=== PATIENT | female | born 1945 | race Caucasian/White ===

== ENCOUNTER 2017-04-26 09:33 | Outpatient (CLI) | payer MEDICARE ==
[~2017-04-26 09:33] MED LIST: ALBU8HFA PO; ATOR20TA PO; BUSP10TA11 PO; DIVA500T2 AD; DULO20CA50 PO; FAMO-128 PO; METO50TA7 PO; NAPR220T67 PO; NITR0.4T51 SL; OXYB5TAB11 PO
[2017-04-26 11:18] LABS: BASOPHILS % (AUTO) 0.6 % (0-1); EOSINOPHILS # (AUTO) 0.2 X10'3 (0-0.9); EOSINOPHILS % (AUTO) 2.6 % (0-6); HEMATOCRIT 39.7 % (35.0-45.0); HEMOGLOBIN 13.4 g/dl (12.0-16.0); LYMPHOCYTES # (AUTO) 2.3 X10'3 (1.1-4.8); LYMPHOCYTES % (AUTO) 34.7 % (21-51); MEAN CORPUSCULAR HEMOGLOBIN 26.8 PG (27.0-31.0); MEAN CORPUSCULAR HGB CONC 33.7 % (33.0-36.5); MEAN CORPUSCULAR VOLUME 79.4 FL (78-98); MEAN PLATELET VOLUME 9.4 FL (7.4-10.4); MONOCYTES # (AUTO) 0.6 X10'3 (0-0.9); MONOCYTES % (AUTO) 9.6 % (2-12); NEUTROPHILS # (AUTO) 3.4 X10'3 (1.8-7.7); NEUTROPHILS % (AUTO) 52.5 % (42-75); PLATELET COUNT 242 X10'3 (140-440); RED CELL DISTRIBUTION WIDTH 14.7 % (11.5-14.5); WHITE BLOOD COUNT 6.5 X10'3 (4.5-11.0)
[2017-04-26 11:20] LABS: CLARITY,URINE SLIGHTLY CLOUDY (Clear); COLOR,URINE YELLOW (Yellow); GLUCOSE, URINE NEGATIVE (Neg); KETONES,URINE NEGATIVE (Neg); LEUKOCYTE ESTERASE ,URINE NEGATIVE (Neg); NITRITES, URINE NEGATIVE (Neg); OCCULT BLOOD,URINE NEGATIVE (Neg); PH,URINE 7.5 (4.8-8.0); PROTEIN,URINE NEGATIVE (Neg); UROBILINOGEN,URINE 0.2 E.U/dL (0.2-1.0)
[2017-04-26 11:22] LABS: UA COLLECTION TYPE CLN CATCH MIDSTREAM
[2017-04-26 11:27] LABS: PROTHROMBIN TIME 10.5 SECONDS (9.0-12.0)
[2017-04-26 11:31] LABS: ALANINE AMINOTRANSFERASE 33 U/L (12-78); ALBUMIN 3.6 G/DL (3.4-5.0); ALBUMIN/GLOBULIN RATIO 1.1 (1.1-1.5); ALKALINE PHOSPHATASE 177 IU/L (46-116); ANION GAP 4 (8-16); ASPARTATE AMINO TRANSFERASE 20 U/L (10-37); BILIRUBIN,TOTAL 0.6 MG/DL (0.1-1.0); BLOOD UREA NITROGEN 19 MG/DL (7-18); CALCIUM 9.3 MG/DL (8.5-10.1); CHLORIDE 105 MMOL/L (99-107); CREATININE 0.73 MG/DL (0.40-0.90); GLUCOSE 129 MG/DL (70-104); POTASSIUM 4.1 MMOL/L (3.5-5.1); SODIUM 140 MMOL/L (135-145); TOTAL CARBON DIOXIDE 30.6 MMOL/L (24-32); TOTAL PROTEIN 6.8 G/DL (6.4-8.2); eGFR 78 ML/MIN
[2017-04-26 11:34] LABS: BACTERIA,URINE NONE SEEN /HPF (Neg); MUCUS STRANDS NONE SEEN /LPF (Neg); RBC,URINE 0-2 /HPF (0-2); RENAL CELLS, URINE FEW /HPF; SQUAMOUS EPITHELIAL CELL,UR FEW /LPF (FEW); WBC,URINE 0-4 /HPF (0-4)
[2017-04-26 11:35] LABS: HEMOGLOBIN A1C 6.3 % (4.5-6.2)
== END 2017-04-26 23:59 | disposition home or self-care (01) ==
LOC: LAB 09:33
PROVIDERS: ATTEND Specialist
DX: Z01.818 Encounter for other preprocedural examination (principal); Z51.81 Encounter for therapeutic drug level monitoring; E11.8 Type 2 diabetes mellitus with unspecified complications; N39.0 Urinary tract infection, site not specified; I10 Essential (primary) hypertension; J45.909 Unspecified asthma, uncomplicated; Z72.89 Other problems related to lifestyle; Z87.891 Personal history of nicotine dependence
CPT/HCPCS: 36415; 80053; 81001; 83036; 85025; 85610; 87070

== ENCOUNTER 2017-05-10 05:30 | Inpatient (IN) | payer MEDICARE ==
[2017-05-10] VITALS (21 sets, daily range): BP systolic 93–132; BP diastolic 43–67
[~2017-05-10] VITALS: Ht 152.4 cm; Wt 84.9 kg
[~2017-05-10 05:30] MED LIST changes: +ALBU18HF2 INH; -ALBU8HFA PO; +BENZ-16 PO; +CA C1TAB95 PO; +CELE-193 PO; +DIPH25CA83 PO; -DIVA500T2 AD; +DOCUMENT DATE & TIME OF BETA-BLOCKER PO ONE; +FISH12002 PO; +FLUT100D2 INH; +HYDR-3965 PO; +ISOS120T9 PO; +LOPE-144 PO; +LORA10TA7 PO; +MULT-38 PO; +MV-M1TAB32 PO; +OXYGEN MC; +REXULTI PO; +SUMA25TA35 PO; +TRAZ-143 PO; +VITAMIN C PO; +VITAMIN D PO; +[UNRECOGNIZED DRUG - OTHER] PO; +acetaminophen 325mg tablet PO ONE; +albuterol 2.5 MG/3 ML nebule NEB ONE; +ceFAZolin 2gm in dextrose, iso 50 ML IV ONE; +famotidine 20mg tablet PO ONE; +gabapentin 300mg capsule PO ONE; +ringers solution, lacted 1,000 ML IV SCH; +tranexamic acid inj. 1,000 MG in normal saline 100ml IV soln 90 ML IV ONE; +vancomycin inj 1,500 MG in normal saline 300ml IV soln IV ONE
[2017-05-10] MEDS ORDERED: LIDOcaine 1% (10mg/ml) 2ml vial ONE (05:42)
[2017-05-10] MEDS ORDERED: ROPIVAcaine 0.5% (5mg/ml) 30ml vial ONE (06:45)
[2017-05-10] MEDS ORDERED: bacitracin inj 150,000 UNIT in sodium chloride irrig. sol 3,000 ML IR ONE (07:00)
[2017-05-10] MEDS ORDERED: MIDAZolam 1mg/ml 10ml vial ONE (07:22)
[2017-05-10] MEDS ORDERED: fentaNYL/PF 50MCG/1 ML 2ML syringe ONE (07:22)
[2017-05-10] MEDS ORDERED: cloNIDine hcl/PF 100mcg/ml inj ONE (07:32)
[2017-05-10] MEDS ORDERED: BUPIVAcaine/PF 7.5mg/ml (0.75%) 10ml vial ONE (07:34)
[2017-05-10] MEDS ORDERED: ePHEDrine 50MG/ML INJ. ONE (07:57)
[2017-05-10] MEDS ORDERED: ringers solution, lacted 1,000 ML IV SCH (08:26)
[2017-05-10] MEDS ORDERED: proCHLORperazine 10 MG/2 ml inj IV PRN (08:30)
[2017-05-10] MEDS ORDERED: meperidine/PF 25mg/ml syringe IV PRN ×3 (08:30)
[2017-05-10] MEDS ORDERED: ondansetron/PF 4mg/2ml inj IV PRN ×2 (08:30→09:30)
[2017-05-10] MEDS ORDERED: albumin (Human) 5% 250ml 250 ML IV ONE (08:43)
[2017-05-10] MEDS ORDERED: ceFAZolin 1000mg inj ONE (08:52)
[2017-05-10] MEDS ORDERED: nitroGLYCERIN 0.4mg SUBLingual tab SL PRN (09:25)
[2017-05-10] MEDS ORDERED: glucagon, human recombinant 1mg kit SUBCUT PRN (09:30)
[2017-05-10] MEDS ORDERED: insulin Lispro (HumaLOG) vial - multi-dose SQ SCH (09:30)
[2017-05-10] MEDS ORDERED: diphenhydrAMINE 25mg capsule PO PRN ×2 (09:30)
[2017-05-10] MEDS ORDERED: magnesium hydroxide 30ml (MOM) UD suspension PO PRN (09:30)
[2017-05-10] MEDS ORDERED: dextrose ORAL solution 15 GM/59 ML bottle PO PRN ×2 (09:30)
[2017-05-10] MEDS ORDERED: bisacodyl 10mg suppository rectal RC PRN (09:30)
[2017-05-10] MEDS ORDERED: dextrose 50%-water 50ml dispensing syringe IV PRN ×2 (09:30)
[2017-05-10] MEDS ORDERED: acetaminophen 325mg tablet PO PRN (09:30)
[2017-05-10] MEDS ORDERED: MESSAGE TO PHARMACY PO ONE (09:30)
[2017-05-10] MEDS ORDERED: HYDROmorphone 1 mg/ml syringe IV PRN (09:30)
[2017-05-10] MEDS ORDERED: HYDROcodone/acetaminophen 10/325mg tab PO PRN (09:40)
[2017-05-10] MEDS: potassium cl 20mEq in 1/2 NS 1,000 ML IV SCH ×2 (12:31→17:16)
[2017-05-10] MEDS: cefazolin 1gm/NS 100mL 100 ML IV SCH ×2 (13:29→22:03)
[2017-05-10] MEDS: gabapentin 300mg capsule PO SCH ×2 (13:30→20:26)
[2017-05-10] MEDS: acetaminophen 325mg tablet PO SCH ×2 (13:30→20:26)
[2017-05-10] MEDS: HYDROcodone/acetaminophen 10/325mg tab PO PRN (16:06)
[2017-05-10] MEDS: lactobacillus rhamnosus 10,000 MMU CELLS/CAPSULE PO SCH (17:16)
[2017-05-10] MEDS ORDERED: vancomycin/NS 1 GM ADD-VANTAGE 250 ML IV SCH (18:00)
[2017-05-10] MEDS: ascorbic acid 500mg tablet PO SCH (20:26)
[2017-05-10] MEDS: busPIRone 5mg tablet PO SCH (20:27)
[2017-05-10] MEDS: celeCOXIB 100mg capsule PO SCH (20:27)
[2017-05-10] MEDS: sennosides 8.6mg tablet PO SCH (20:28)
[2017-05-10] MEDS: insulin glargine (Lantus) pen - multi-dose SQ SCH (21:00)
[2017-05-10] MEDS ORDERED: non-formulary drug ([Oxygen] 2 L) MC SCH (21:00)
[2017-05-11] MEDS: potassium cl 20mEq in 1/2 NS 1,000 ML IV SCH ×4 (00:39→22:24)
[2017-05-11] MEDS: HYDROcodone/acetaminophen 10/325mg tab PO PRN ×3 (00:39→16:35)
[2017-05-11 02:00] VITALS: BP 111/67
[2017-05-11] MEDS: acetaminophen 325mg tablet PO SCH ×4 (02:00→22:23)
[2017-05-11 05:00] VITALS: BP 111/67
[2017-05-11 06:48] LABS: BASOPHILS % (AUTO) 0.2 % (0-1); EOSINOPHILS # (AUTO) 0.1 X10'3 (0-0.9); EOSINOPHILS % (AUTO) 1.2 % (0-6); HEMATOCRIT 31.8 % (35.0-45.0); HEMOGLOBIN 10.9 g/dl (12.0-16.0); LYMPHOCYTES # (AUTO) 1.1 X10'3 (1.1-4.8); LYMPHOCYTES % (AUTO) 11.2 % (21-51); MEAN CORPUSCULAR HEMOGLOBIN 27.2 PG (27.0-31.0); MEAN CORPUSCULAR HGB CONC 34.4 % (33.0-36.5); MEAN CORPUSCULAR VOLUME 79.1 FL (78-98); MEAN PLATELET VOLUME 9.5 FL (7.4-10.4); MONOCYTES # (AUTO) 1.1 X10'3 (0-0.9); MONOCYTES % (AUTO) 10.9 % (2-12); NEUTROPHILS # (AUTO) 7.5 X10'3 (1.8-7.7); NEUTROPHILS % (AUTO) 76.5 % (42-75); PLATELET COUNT 183 X10'3 (140-440); RED BLOOD COUNT 4.02 X10'6 (4.20-5.60); RED CELL DISTRIBUTION WIDTH 14.4 % (11.5-14.5); WHITE BLOOD COUNT 9.8 X10'3 (4.5-11.0)
[2017-05-11 06:51] LABS: INR 1.8 INR; PROTHROMBIN TIME 18.1 SECONDS (9.0-12.0)
[2017-05-11 07:41] LABS: ANION GAP 5 (8-16); CHLORIDE 106 MMOL/L (99-107); POTASSIUM 4.1 MMOL/L (3.5-5.1); SODIUM 139 MMOL/L (135-145); TOTAL CARBON DIOXIDE 28.1 MMOL/L (24-32)
[2017-05-11] MEDS ORDERED: fluticasone furoate 200 MCG/puff inhaler IH SCH (08:00)
[2017-05-11] MEDS: albuterol 2.5 MG/3 ML nebule NEB SCH (08:12)
[2017-05-11] MEDS: busPIRone 5mg tablet PO SCH ×2 (08:31→22:23)
[2017-05-11] MEDS: gabapentin 300mg capsule PO SCH ×3 (08:31→22:22)
[2017-05-11] MEDS: metoprolol succinate 25mg (24-HOUR) SR. Tablet PO SCH (08:31)
[2017-05-11] MEDS: atorvastatin 20mg tablet PO SCH (08:32)
[2017-05-11] MEDS: ascorbic acid 500mg tablet PO SCH ×2 (08:33→22:22)
[2017-05-11] MEDS: multivitamins, therapeutics tablet PO SCH (08:33)
[2017-05-11] MEDS: isosorbide mononitrate 30mg tab.SR.24H PO SCH (08:33)
[2017-05-11] MEDS: oxybutynin 5mg tablet PO SCH (08:33)
[2017-05-11] MEDS: lactobacillus rhamnosus 10,000 MMU CELLS/CAPSULE PO SCH ×2 (08:34→16:35)
[2017-05-11] MEDS: famotidine 20mg tablet PO SCH (09:01)
[2017-05-11] MEDS: duloxetine 20mg capsule.DR PO SCH (09:04)
[2017-05-11] MEDS: celeCOXIB 100mg capsule PO SCH ×2 (09:07→22:23)
[2017-05-11] MEDS ORDERED: warfarin 1mg tablet PO ONE (10:00)
[2017-05-11 11:33] VITALS: BP 118/43
[2017-05-11] MEDS: fluticasone furoate 100MCG/puff inhaler IH SCH ×2 (11:51→13:48)
[2017-05-11 19:30] VITALS: BP 81/39
[2017-05-11] MEDS: Protein Shake (high protein) 240ml (8oz) cup PO SCH (19:30)
[2017-05-11] MEDS: insulin glargine (Lantus) pen - multi-dose SQ SCH (21:00)
[2017-05-11 22:00] VITALS: BP 97/51
[2017-05-11] MEDS: sennosides 8.6mg tablet PO SCH (22:23)
[2017-05-12] MEDS: acetaminophen 325mg tablet PO SCH ×2 (02:00→08:29)
[2017-05-12] MEDS: HYDROcodone/acetaminophen 10/325mg tab PO PRN (05:21)
[2017-05-12 06:30] VITALS: BP 122/60
[2017-05-12 07:15] LABS: BASOPHILS % (AUTO) 0.2 % (0-1); EOSINOPHILS # (AUTO) 0.2 X10'3 (0-0.9); EOSINOPHILS % (AUTO) 2.5 % (0-6); HEMATOCRIT 27.2 % (35.0-45.0); HEMOGLOBIN 9.5 g/dl (12.0-16.0); LYMPHOCYTES # (AUTO) 2.5 X10'3 (1.1-4.8); LYMPHOCYTES % (AUTO) 29.1 % (21-51); MEAN CORPUSCULAR HEMOGLOBIN 27.4 PG (27.0-31.0); MEAN CORPUSCULAR VOLUME 78.1 FL (78-98); MEAN PLATELET VOLUME 9.6 FL (7.4-10.4); MONOCYTES # (AUTO) 1.4 X10'3 (0-0.9); MONOCYTES % (AUTO) 16.1 % (2-12); NEUTROPHILS # (AUTO) 4.5 X10'3 (1.8-7.7); NEUTROPHILS % (AUTO) 52.1 % (42-75); PLATELET COUNT 161 X10'3 (140-440); RED BLOOD COUNT 3.48 X10'6 (4.20-5.60); RED CELL DISTRIBUTION WIDTH 15.1 % (11.5-14.5); WHITE BLOOD COUNT 8.7 X10'3 (4.5-11.0)
[2017-05-12 07:20] LABS: INR 1.6 INR; PROTHROMBIN TIME 16.1 SECONDS (9.0-12.0)
[2017-05-12] MEDS: albuterol 2.5 MG/3 ML nebule NEB SCH (07:50)
[2017-05-12] MEDS: fluticasone furoate 100MCG/puff inhaler IH SCH (07:50)
[2017-05-12] MEDS: busPIRone 5mg tablet PO SCH (08:29)
[2017-05-12] MEDS: ascorbic acid 500mg tablet PO SCH (08:29)
[2017-05-12] MEDS: atorvastatin 20mg tablet PO SCH (08:29)
[2017-05-12] MEDS: multivitamins, therapeutics tablet PO SCH (08:29)
[2017-05-12] MEDS: oxybutynin 5mg tablet PO SCH (08:29)
[2017-05-12] MEDS: isosorbide mononitrate 30mg tab.SR.24H PO SCH (08:29)
[2017-05-12] MEDS: duloxetine 20mg capsule.DR PO SCH (08:29)
[2017-05-12] MEDS: celeCOXIB 100mg capsule PO SCH (08:30)
[2017-05-12] MEDS: famotidine 20mg tablet PO SCH (08:30)
[2017-05-12] MEDS: Protein Shake (high protein) 240ml (8oz) cup PO SCH ×2 (08:30→13:30)
[2017-05-12] MEDS: gabapentin 300mg capsule PO SCH (08:30)
[2017-05-12] MEDS: lactobacillus rhamnosus 10,000 MMU CELLS/CAPSULE PO SCH (08:30)
[2017-05-12] MEDS: metoprolol succinate 25mg (24-HOUR) SR. Tablet PO SCH (08:30)
[2017-05-12] MEDS ORDERED: acetaminophen 325mg tablet PO PRN (09:30)
[2017-05-12 10:00] VITALS: BP 106/59
[2017-05-12] MEDS ORDERED: warfarin 4mg tablet PO ONE (10:00)
[2017-05-12] MEDS ORDERED: ASPI-1264 PO (10:51)
== END 2017-05-12 15:17 | disposition home health service (06) | DRG 470 ==
LOC: PAS IN 05:30 → EDSTATUS 07:30 → ORTHO 4S 11:53
PROVIDERS: ADMIT Specialist; ATTEND Specialist
PROC: 3E0T3BZ Introduction of Anesthetic Agent into Peripheral Nerves and Plexi, Percutaneous Approach (ICD-10-PCS; 2017-05-10)
PROC: 0SRB02Z Replacement of Left Hip Joint with Metal on Polyethylene Synthetic Substitute, Open Approach (ICD-10-PCS; principal; 2017-05-10 07:22)
DX: M16.12 Unilateral primary osteoarthritis, left hip (principal); J44.9 Chronic obstructive pulmonary disease, unspecified; D62 Acute posthemorrhagic anemia; I10 Essential (primary) hypertension; K21.9 Gastro-esophageal reflux disease without esophagitis; G47.30 Sleep apnea, unspecified; F32.9 Major depressive disorder, single episode, unspecified; J45.909 Unspecified asthma, uncomplicated; R73.9 Hyperglycemia, unspecified; G43.909 Migraine, unspecified, not intractable, without status migrainosus; Z96.659 Presence of unspecified artificial knee joint; Z90.710 Acquired absence of both cervix and uterus; Z98.49 Cataract extraction status, unspecified eye; Z79.899 Other long term (current) drug therapy; Z79.01 Long term (current) use of anticoagulants; Z88.5 Allergy status to narcotic agent; Z88.0 Allergy status to penicillin; Z88.8 Allergy status to other drugs, medicaments and biological substances; Z87.891 Personal history of nicotine dependence
CPT/HCPCS: 36415; 73502; 80051; 82948; 83036; 85025; 85610; 86885; 86900; 86901; 94640; 94760; 97110; 97116; 97162; 97530; A4565; A6253; A6449; A6455; A7000; C1758; C1776; J0690; J0735; J1170; J1815; J2250; J2405; J2795; J3010; J3370; J3490; J7030; J7120; P9045

== ENCOUNTER 2017-08-09 09:38 | Emergency (ER) | payer MEDICARE ==
[~2017-08-09] VITALS: Ht 152.4 cm; Wt 84.0 kg
[~2017-08-09 09:38] MED LIST changes: +ASPI-1264 PO; -BENZ-16 PO; +CLON0.5T4 PO; -DOCUMENT DATE & TIME OF BETA-BLOCKER PO ONE; -acetaminophen 325mg tablet PO ONE; -albuterol 2.5 MG/3 ML nebule NEB ONE; -ceFAZolin 2gm in dextrose, iso 50 ML IV ONE; -famotidine 20mg tablet PO ONE; -gabapentin 300mg capsule PO ONE; -ringers solution, lacted 1,000 ML IV SCH; -tranexamic acid inj. 1,000 MG in normal saline 100ml IV soln 90 ML IV ONE; -vancomycin inj 1,500 MG in normal saline 300ml IV soln IV ONE
[2017-08-09 11:30] VITALS: BP 150/56
== END 2017-08-09 11:32 | disposition home or self-care (01) ==
LOC: ER 09:39
DX: S09.90XA Unspecified injury of head, initial encounter (principal); I10 Essential (primary) hypertension; J44.9 Chronic obstructive pulmonary disease, unspecified; Z88.0 Allergy status to penicillin; Z88.5 Allergy status to narcotic agent; Z88.6 Allergy status to analgesic agent; Z88.2 Allergy status to sulfonamides; Z98.890 Other specified postprocedural states; Z79.899 Other long term (current) drug therapy; W01.0XXA Fall on same level from slipping, tripping and stumbling without subsequent striking against object, initial encounter; Y93.89 Activity, other specified; Y92.89 Other specified places as the place of occurrence of the external cause; Y99.8 Other external cause status
CPT/HCPCS: 70450; 99284

== ENCOUNTER 2017-08-31 13:17 | Emergency (ER) | payer MEDICARE ==
[~2017-08-31] VITALS: Ht 152.4 cm; Wt 75.0 kg
[2017-08-31 13:37] LABS: BASOPHILS % (AUTO) 0.4 % (0-1); EOSINOPHILS # (AUTO) 0.2 X10'3 (0-0.9); EOSINOPHILS % (AUTO) 2.7 % (0-6); HEMATOCRIT 38.8 % (35.0-45.0); HEMOGLOBIN 13.1 g/dl (12.0-16.0); LYMPHOCYTES # (AUTO) 2.2 X10'3 (1.1-4.8); LYMPHOCYTES % (AUTO) 28.7 % (21-51); MEAN CORPUSCULAR HEMOGLOBIN 26.9 PG (27.0-31.0); MEAN CORPUSCULAR HGB CONC 33.8 % (33.0-36.5); MEAN CORPUSCULAR VOLUME 79.4 FL (78-98); MEAN PLATELET VOLUME 9.4 FL (7.4-10.4); MONOCYTES % (AUTO) 12.9 % (2-12); NEUTROPHILS # (AUTO) 4.2 X10'3 (1.8-7.7); NEUTROPHILS % (AUTO) 55.3 % (42-75); PLATELET COUNT 233 X10'3 (140-440); RED BLOOD COUNT 4.88 X10'6 (4.20-5.60); RED CELL DISTRIBUTION WIDTH 15.4 % (11.5-14.5); WHITE BLOOD COUNT 7.6 X10'3 (4.5-11.0)
[2017-08-31 13:46] LABS: PROTHROMBIN TIME 10.3 SECONDS (9.0-12.0)
[2017-08-31 13:51] LABS: ALANINE AMINOTRANSFERASE 93 U/L (12-78); ALBUMIN 3.5 G/DL (3.4-5.0); ALBUMIN/GLOBULIN RATIO 1.1 (1.1-1.5); ALKALINE PHOSPHATASE 478 IU/L (46-116); ANION GAP 8 (8-16); ASPARTATE AMINO TRANSFERASE 82 U/L (10-37); BILIRUBIN,TOTAL 0.6 MG/DL (0.1-1.0); BLOOD UREA NITROGEN 19 MG/DL (7-18); BUN/CREATININE RATIO 27.9 (6.6-38.0); CALCIUM 9.6 MG/DL (8.5-10.1); CHLORIDE 105 MMOL/L (99-107); CREATININE 0.68 MG/DL (0.40-0.90); GLUCOSE 123 MG/DL (70-104); POTASSIUM 4.1 MMOL/L (3.5-5.1); SODIUM 139 MMOL/L (135-145); TOTAL CARBON DIOXIDE 26.2 MMOL/L (24-32); TOTAL PROTEIN 6.7 G/DL (6.4-8.2); eGFR 85 ML/MIN
[2017-08-31 15:12] LABS: CLARITY,URINE CLEAR (Clear); COLOR,URINE YELLOW (Yellow); GLUCOSE, URINE NEGATIVE (Neg); KETONES,URINE NEGATIVE (Neg); LEUKOCYTE ESTERASE ,URINE TRACE (Neg); NITRITES, URINE NEGATIVE (Neg); OCCULT BLOOD,URINE NEGATIVE (Neg); PROTEIN,URINE NEGATIVE (Neg)
[2017-08-31 15:19] LABS: UA COLLECTION TYPE CLN CATCH MIDSTREAM
[2017-08-31 15:20] LABS: WBC,URINE 0-4 /HPF (0-4)
[2017-08-31 15:21] LABS: AMORPHOUS PHOSPHATES 1+; BACTERIA,URINE FEW /HPF (Neg); MUCUS STRANDS FEW /LPF (Neg); RBC,URINE NONE SEEN /HPF (0-2); SQUAMOUS EPITHELIAL CELL,UR FEW /LPF (FEW)
[2017-08-31 15:37] VITALS: BP 94/35
== END 2017-08-31 15:39 | disposition home or self-care (01) ==
LOC: ER 13:17
DX: R53.1 Weakness (principal); I69.954 Hemiplegia and hemiparesis following unspecified cerebrovascular disease affecting left non-dominant side; J44.9 Chronic obstructive pulmonary disease, unspecified; I10 Essential (primary) hypertension; Z88.0 Allergy status to penicillin; Z88.2 Allergy status to sulfonamides; Z88.5 Allergy status to narcotic agent; Z88.6 Allergy status to analgesic agent; Z79.82 Long term (current) use of aspirin; Z98.890 Other specified postprocedural states
CPT/HCPCS: 36415; 70450; 71045; 80053; 81001; 84484; 85025; 85610; 87088; 93005; 99285

== ENCOUNTER 2017-12-14 14:36 | Emergency (ER) | payer MEDICARE ==
[~2017-12-14] VITALS: Ht 162.6 cm; Wt 80.7 kg
[~2017-12-14 14:36] MED LIST changes: -ASPI-1264 PO; +CLON0.5T12 PO; -CLON0.5T4 PO; -TRAZ-143 PO; +TRAZ-218 PO
[2017-12-14] MEDS ORDERED: orphenadrine citrate 60mg/2ml inj. IM ONE (16:00)
[2017-12-14] MEDS ORDERED: CYCL-1 PO (16:02)
== END 2017-12-14 16:21 | disposition home or self-care (01) ==
LOC: ER 14:37
DX: S39.012A Strain of muscle, fascia and tendon of lower back, initial encounter (principal); I10 Essential (primary) hypertension; J44.9 Chronic obstructive pulmonary disease, unspecified; Z86.73 Personal history of transient ischemic attack (TIA), and cerebral infarction without residual deficits; Z88.0 Allergy status to penicillin; Z88.2 Allergy status to sulfonamides; Z88.8 Allergy status to other drugs, medicaments and biological substances; Z88.6 Allergy status to analgesic agent; Z91.040 Latex allergy status; W18.30XA Fall on same level, unspecified, initial encounter; Y93.9 Activity, unspecified; Y92.89 Other specified places as the place of occurrence of the external cause; Y99.8 Other external cause status
CPT/HCPCS: 96372; 99284; J2360

== ENCOUNTER 2018-07-06 15:17 | Emergency (ER) | payer MEDICARE ==
[~2018-07-06] VITALS: Ht 152.4 cm; Wt 87.3 kg
[~2018-07-06 15:17] MED LIST changes: +CYCL-1 PO; +ISOS120T13 PO; -ISOS120T9 PO
[2018-07-06] MEDS ORDERED: normal saline 1000ML IV soln IVB ONE (16:25)
[2018-07-06] MEDS ORDERED: proCHLORperazine 10 MG/2 ml inj IV ONE (16:25)
[2018-07-06] MEDS ORDERED: diphenhydrAMINE 50 mg/ml inj IV ONE (16:25)
[2018-07-06 17:01] VITALS: BP 109/54
[2018-07-06] MEDS ORDERED: ketorolac tromethamine 15mg/ml inj. IV ONE (17:10)
--- NOTE | 2018-07-06 17:15 | NUR ---
Tricia LATHAM aware of allergy to toradol. Patient states that she has had it since her initial reaction to medication without any difficulty. Ok to given per PA.
== END 2018-07-06 18:53 | disposition home or self-care (01) ==
LOC: ER 15:17
DX: G43.909 Migraine, unspecified, not intractable, without status migrainosus (principal); I10 Essential (primary) hypertension; J44.9 Chronic obstructive pulmonary disease, unspecified; E11.9 Type 2 diabetes mellitus without complications; Z86.73 Personal history of transient ischemic attack (TIA), and cerebral infarction without residual deficits; Z98.890 Other specified postprocedural states; Z79.899 Other long term (current) drug therapy; Z88.0 Allergy status to penicillin; Z88.2 Allergy status to sulfonamides; Z88.5 Allergy status to narcotic agent; Z91.040 Latex allergy status; Z88.6 Allergy status to analgesic agent; Z88.8 Allergy status to other drugs, medicaments and biological substances
CPT/HCPCS: 96374; 96375; 99284; J0780; J1200; J1885; J7030

== ENCOUNTER 2019-09-02 14:50 | Emergency (ER) | payer MEDICARE ==
[~2019-09-02] VITALS: Ht 152.4 cm; Wt 86.2 kg
[~2019-09-02 14:50] MED LIST changes: -CLON0.5T12 PO; +CLON0.5T4 PO; -OXYB5TAB11 PO; +OXYB5TAB16 PO; -TRAZ-218 PO; +TRAZ-251 PO
[2019-09-02 15:50] LABS: BASOPHILS # (AUTO) 0.1 X10'3 (0-0.2); BASOPHILS % (AUTO) 0.7 % (0-1); EOSINOPHILS # (AUTO) 0.2 X10'3 (0-0.9); EOSINOPHILS % (AUTO) 2.3 % (0-6); HEMATOCRIT 39.8 % (35.0-45.0); HEMOGLOBIN 13.3 g/dl (12.0-16.0); LYMPHOCYTES # (AUTO) 1.9 X10'3 (1.1-4.8); LYMPHOCYTES % (AUTO) 18.5 % (21-51); MEAN CORPUSCULAR HEMOGLOBIN 28.1 PG (27.0-31.0); MEAN CORPUSCULAR HGB CONC 33.5 g/dL (33.0-36.5); MEAN CORPUSCULAR VOLUME 83.9 FL (78-98); MEAN PLATELET VOLUME 9.1 FL (7.4-10.4); MONOCYTES # (AUTO) 1.2 X10'3 (0-0.9); MONOCYTES % (AUTO) 12.3 % (2-12); NEUTROPHILS # (AUTO) 6.7 X10'3 (1.8-7.7); NEUTROPHILS % (AUTO) 66.2 % (42-75); PLATELET COUNT 225 X10'3 (140-440); RED BLOOD COUNT 4.74 X10'6 (4.20-5.60); RED CELL DISTRIBUTION WIDTH 14.2 % (11.5-14.5); WHITE BLOOD COUNT 10.1 X10'3 (4.5-11.0)
[2019-09-02 16:06] LABS: ALANINE AMINOTRANSFERASE 24 U/L (12-78); ALBUMIN 3.3 G/DL (3.4-5.0); ALBUMIN/GLOBULIN RATIO 1.1 (1.1-1.5); ALKALINE PHOSPHATASE 131 IU/L (46-116); ANION GAP 5 (8-16); ASPARTATE AMINO TRANSFERASE 23 U/L (10-37); BILIRUBIN,TOTAL 0.6 MG/DL (0.1-1.0); BLOOD UREA NITROGEN 13 MG/DL (7-18); BUN/CREATININE RATIO 15.5 (6.6-38.0); CALCIUM 8.8 MG/DL (8.5-10.1); CHLORIDE 102 MMOL/L (99-107); CREATININE 0.84 MG/DL (0.40-0.90); GLUCOSE 180 MG/DL (70-104); POTASSIUM 3.6 MMOL/L (3.5-5.1); SODIUM 134 MMOL/L (135-145); TOTAL CARBON DIOXIDE 26.6 MMOL/L (24-32); TOTAL PROTEIN 6.4 G/DL (6.4-8.2); eGFR 66 ML/MIN
[2019-09-02 16:41] LABS: MAGNESIUM 1.6 MG/DL (1.5-2.4)
[2019-09-02 16:44] LABS: PARTIAL THROMBOPLASTIN TIME 25 SECONDS (22-32)
[2019-09-02] MEDS ORDERED: acetaminophen 325mg tablet PO ONE (16:55)
[2019-09-02] MEDS ORDERED: normal saline 1000ML IV soln IVB ONE (16:55)
[2019-09-02] MEDS ORDERED: ACET-890 PO (16:58)
--- NOTE | 2019-09-02 17:05 | NUR ---
provided ptwith snack, gae tylenol and started ns bolus
[2019-09-02] MEDS ORDERED: insulin regular, human U-100 3ml vial - multi-dose SQ SCH (17:15)
[2019-09-02] MEDS ORDERED: dextrose ORAL solution 15 GM/59 ML bottle PO PRN ×2 (17:15)
[2019-09-02] MEDS ORDERED: glucagon, human recombinant 1mg kit SUBCUT PRN (17:15)
[2019-09-02] MEDS ORDERED: MESSAGE TO PHARMACY PO ONE (17:15)
[2019-09-02] MEDS ORDERED: dextrose 50%-water 50ml dispensing syringe IV PRN ×2 (17:15)
--- NOTE | 2019-09-02 17:37 | NUR ---
called thao [phone] to come in 30 min to pick pt up
[2019-09-02 18:06] VITALS: BP 118/52
[2019-09-02] MEDS ORDERED: insulin glargine (Lantus) pen - multi-dose SQ SCH (21:00)
== END 2019-09-02 18:08 | disposition home or self-care (01) ==
LOC: ER 14:51
DX: E86.0 Dehydration (principal); R55 Syncope and collapse; R07.89 Other chest pain; I10 Essential (primary) hypertension; J44.9 Chronic obstructive pulmonary disease, unspecified; Z86.73 Personal history of transient ischemic attack (TIA), and cerebral infarction without residual deficits; Z98.890 Other specified postprocedural states; Z79.899 Other long term (current) drug therapy; Z88.0 Allergy status to penicillin; Z88.2 Allergy status to sulfonamides; Z88.5 Allergy status to narcotic agent; Z88.6 Allergy status to analgesic agent
CPT/HCPCS: 36415; 71045; 80053; 82948; 83735; 84484; 85025; 85610; 85730; 93005; 96360; 99285; J7030; J1815

== ENCOUNTER 2021-10-23 15:41 | Emergency (ER) | payer MEDICARE ==
[~2021-10-23] VITALS: Ht 152.4 cm; Wt 78.2 kg
[2021-10-23] MEDS ORDERED: BEBTELOVIMAB 175 MG/2 ML VIAL IV ONE (17:30)
[2021-10-23] MEDS ORDERED: normal saline 500ml IV soln 500 ML IV ONE (17:30)
[2021-10-23 17:46] LABS: BASOPHILS # (AUTO) 0.1 X10'3 (0-0.2); BASOPHILS % (AUTO) 0.7 % (0-1); EOSINOPHILS # (AUTO) 0.1 X10'3 (0-0.9); EOSINOPHILS % (AUTO) 1.7 % (0-6); HEMATOCRIT 40.1 % (35.0-45.0); HEMOGLOBIN 13.7 g/dl (12.0-16.0); LYMPHOCYTES # (AUTO) 1.7 X10'3 (1.1-4.8); LYMPHOCYTES % (AUTO) 19.9 % (21-51); MEAN CORPUSCULAR HEMOGLOBIN 27.4 PG (27.0-31.0); MEAN CORPUSCULAR HGB CONC 34.2 g/dL (33.0-36.5); MEAN PLATELET VOLUME 8.6 FL (7.4-10.4); MONOCYTES % (AUTO) 12.1 % (2-12); NEUTROPHILS # (AUTO) 5.5 X10'3 (1.8-7.7); NEUTROPHILS % (AUTO) 65.6 % (42-75); PLATELET COUNT 363 X10'3 (140-440); RED BLOOD COUNT 5.01 X10'6 (4.20-5.60); RED CELL DISTRIBUTION WIDTH 14.9 % (11.5-14.5); WHITE BLOOD COUNT 8.4 X10'3 (4.5-11.0)
[2021-10-23 18:05] LABS: ALANINE AMINOTRANSFERASE 29 U/L (12-78); ALBUMIN/GLOBULIN RATIO 0.8 (1.1-1.5); ALKALINE PHOSPHATASE 114 IU/L (46-116); ANION GAP 8 (8-16); ASPARTATE AMINO TRANSFERASE 23 U/L (10-37); BILIRUBIN,TOTAL 0.5 MG/DL (0.1-1.0); BLOOD UREA NITROGEN 14 MG/DL (7-18); BUN/CREATININE RATIO 21.5 (6.6-38.0); CALCIUM 9.3 MG/DL (8.5-10.1); CHLORIDE 107 MMOL/L (99-107); CREATININE 0.65 MG/DL (0.40-0.90); GLUCOSE 134 MG/DL (70-104); POTASSIUM 3.2 MMOL/L (3.5-5.1); SODIUM 137 MMOL/L (135-145); TOTAL CARBON DIOXIDE 22.5 MMOL/L (24-32); TOTAL PROTEIN 6.8 G/DL (6.4-8.2); eGFR 88 ML/MIN
[2021-10-23] MEDS ORDERED: ondansetron 4mg rapidly disintigrating tab PO ONE (18:45)
[2021-10-23] MEDS ORDERED: potassium Cl 20 mEq SR tablet PO ONE (18:45)
[2021-10-23] MEDS ORDERED: GUAI400T92 PO (18:59)
[2021-10-23] MEDS ORDERED: ONDA4TAB12 PO (18:59)
[2021-10-23 19:36] VITALS: BP 138/89
== END 2021-10-23 19:38 | disposition home or self-care (01) ==
LOC: ER 15:45
DX: U07.1 COVID-19 (principal); I11.9 Hypertensive heart disease without heart failure; J44.9 Chronic obstructive pulmonary disease, unspecified; E11.9 Type 2 diabetes mellitus without complications; E06.9 Thyroiditis, unspecified; Z79.899 Other long term (current) drug therapy; Z88.0 Allergy status to penicillin; Z88.2 Allergy status to sulfonamides; Z88.5 Allergy status to narcotic agent
CPT/HCPCS: 36415; 71045; 80053; 83735; 84484; 85025; 87502; 87503; 87635; 93005; 96360; 99285; C9803; J7030; J7040; M0222; Q0222